=== PATIENT | female | born 1985 | race Caucasian/White ===

== ENCOUNTER 2017-04-21 22:24 | Outpatient (CLI) | payer OTHER | END 2017-04-21 22:25 | disposition critical access hospital (66) | LOC: EMS 22:24 | PROVIDERS: ATTEND Surgery | DX: O34.219 Maternal care for unspecified type scar from previous cesarean delivery (principal); Z37.0 Single live birth | CPT/HCPCS: A0425; A0429 ==

== ENCOUNTER 2017-04-21 22:38 | Inpatient (IN) | payer OTHER ==
[2017-04-21] MEDS ORDERED: OXYTOCIN 10 UNIT/ML VIAL IM ONE (23:00)
[2017-04-21] MEDS: LACTATED RINGERS 1,000 ML IV SCH (23:20)
[2017-04-21] MEDS ORDERED: LIDOCAINE-MPF 1% 30 ML VIAL TOP ONE (23:20)
[2017-04-21] MEDS ORDERED: ONDANSETRON 4 MG/2 ML VIAL IVP PRN (23:39)
[2017-04-21] MEDS ORDERED: WITCH HAZEL/GLYCERIN 1 EACH MED..PAD TOP PRN (23:39)
[2017-04-21] MEDS ORDERED: HYDROCORTISONE 1% CREAM 28 GM TUBE PR PRN (23:39)
[2017-04-21] MEDS ORDERED: diphenhydrAMINE 25 MG CAPSULE PO PRN (23:39)
[2017-04-21] MEDS ORDERED: OXYTOCIN/SODIUM CHLORIDE 250 ML IV ONE (23:39)
[2017-04-21] MEDS ORDERED: OMEPRAZOLE PO PRN (23:43)
[2017-04-21 23:54] LABS: BASOPHILS # (AUTO) 0.1 10^3/uL (0.0-0.1); BASOPHILS % (AUTO) 0.4 %; HCT - HEMATOCRIT 32.2 % (37.0-47.0); HGB - HEMOGLOBIN 10.4 g/dL (12.0-16.0); LYMPHOCYTES # (AUTO) 1.3 10^3/uL (1.5-3.5); LYMPHOCYTES % (AUTO) 6.9 %; MEAN CORPUSCULAR HGB CONC 32.4 g/dL (32.0-36.0); MEAN CORPUSCULAR VOLUME 83.3 fL (81.0-99.0); MEAN PLATELET VOLUME 11.1 fL (7.9-10.8); MONOCYTES # (AUTO) 0.5 10^3/uL (0.0-1.0); MONOCYTES % (AUTO) 2.8 %; NEUTROPHILS # (AUTO) 16.4 10^3/uL (1.5-6.6); NEUTROPHILS % (AUTO) 89.9 %; RED BLOOD COUNT 3.87 10^6/uL (4.20-5.40); RED CELL DISTRIBUTION WIDTH 13.6 % (12.0-15.0); UNCORRECTED WHITE BLOOD COUNT 18.3 x10^3/uL; WHITE BLOOD COUNT 18.3 x10^3/uL (4.8-10.8)
--- NOTE | 2017-04-21 23:57 | DELIVERY NOTE ---
Delivery Note - Labor Labor: positive: Spontaneous - Delivery Method Delivery Method: positive: Spontaneous vaginal delivery, Vaginal after - Anesthetic Anesthetic: positive: Lidocaine - 1% plain Volume: positive: Other (20) - Episiotomy Type Episiotomy Type: positive: None - Laceration Laceration: positive: Labial - Suture Suture Type: positive: Vicryl Suture Size: positive: 4-0 - Delivery Outcome Delivery Outcome: positive: Livebirth - [place] sex: positive: Male - Cord Cord: positive: 3 vessels - Placenta Placenta: positive: Intact, Spontaneous - Estimated Blood Loss Estimated Blood Loss (in cc): 300 - Post Delivery Events Post Delivery Events: positive: No post delivery events - Delivery Comments (Free Text/Narrative) Delivery Comments (Free Text/Narrative): 31 yo S/p and in the ambulance en route to [facility], the closest medical facility Patient of [facility] Will obtain records from [facility] Routine care Pre-eclampsia labs ordered Rh work up; per patient report she is Rh negative. H&P Dictation [id number]
[2017-04-22 00:03] LABS: CREATININE 0.7 mg/dL (0.4-1.0); URIC ACID 5.9 mg/dL (2.6-7.2)
[2017-04-22] MEDS: HYDROcod/ACETAM 5/325 MG TABLET PO SCH ×5 (00:20→22:41)
[2017-04-22] MEDS ORDERED: SODIUM CHLORIDE FLUSH 0.9% 10 ML SYRINGE IVP ONE (05:23)
[2017-04-22] MEDS: SIMETHICONE CHEW 80 MG TABLET PO SCH ×3 (05:59→21:41)
--- NOTE | 2017-04-22 06:24 | PROVIDER PROGRESS NOTE ---
Subjective - Prog Note Date Prog Note Date: 04/22/17 Prog Note Time: 06:23 Objective - Vital Signs/Intake & Output Reviewed Vital Signs: Yes Vital Signs: Vital Signs x48h Temp Pulse Resp BP Pulse Ox 04/22/17 04:45 98.6 F 98 18 122/80 99 04/22/17 03:05 98.6 F 94 16 122/83 H 100 04/22/17 02:15 99.5 F 97 20 123/84 H 100 04/22/17 01:00 95 20 131/88 H 04/22/17 00:45 91 20 137/88 H 04/22/17 00:40 92 20 136/93 H 04/22/17 00:25 97.2 F L 92 20 136/93 H 04/22/17 00:15 87 22 136/90 H 04/22/17 00:00 87 20 144/100 H 04/21/17 23:45 89 20 139/80 H 100 04/21/17 23:30 90 22 143/95 H 04/21/17 23:15 92 24 136/90 H 100 04/21/17 23:00 96 24 139/104 H 100 Intake & Output: Intake & Output 04/19/17 04/20/17 04/21/17 04/22/17 23:59 23:59 23:59 23:59 Output Total 600 Balance -600 - Lab Results Fish Bones: 04/21/17 23:18 04/21/17 23:18 Other Labs: Lab Results x24hrs 04/21/17 04/21/17 04/21/17 Range/Units 23:18 23:18 23:18 WBC (4.8-10.8) x10^3/uL RBC (4.20-5.40) 10^6/uL Hgb (12.0-16.0) g/dL Hct (37.0-47.0) % MCV (81.0-99.0) fL MCH (27.0-31.0) pg MCHC (32.0-36.0) g/dL RDW (12.0-15.0) % Plt Count (130-450) 10^3/uL MPV (7.9-10.8) fL Neut # (1.5-6.6) 10^3/uL Lymph # (1.5-3.5) 10^3/uL [place] # (0.0-1.0) 10^3/uL Eos # (0.0-0.7) 10^3/uL Baso # (0.0-0.1) 10^3/uL Absolute Nucleated RBC x10^3/uL Nucleated RBC % /100WBC Creatinine 0.7 (0.4-1.0) mg/dL Estimated GFR (MDRD) 99 (>89) Uric Acid 5.9 (2.6-7.2) mg/dL AST 28 (10-42) IU/L Lactate Dehydrogenase 141 (91-225) IU/L Blood Type A NEGATIVE Antibody Screen NEGATIVE 04/21/17 Range/Units 23:18 WBC 18.3 H (4.8-10.8) x10^3/uL RBC 3.87 L (4.20-5.40) 10^6/uL Hgb 10.4 L (12.0-16.0) g/dL Hct 32.2 L (37.0-47.0) % MCV 83.3 (81.0-99.0) fL MCH 27.0 (27.0-31.0) pg MCHC 32.4 (32.0-36.0) g/dL RDW 13.6 (12.0-15.0) % Plt Count 220 (130-450) 10^3/uL MPV 11.1 H (7.9-10.8) fL Neut # 16.4 H (1.5-6.6) 10^3/uL Lymph # 1.3 L (1.5-3.5) 10^3/uL [place] # 0.5 (0.0-1.0) 10^3/uL Eos # 0.0 (0.0-0.7) 10^3/uL Baso # 0.1 (0.0-0.1) 10^3/uL Absolute Nucleated RBC 0.00 x10^3/uL Nucleated RBC % 0.0 /100WBC Creatinine (0.4-1.0) mg/dL Estimated GFR (MDRD) (>89) Uric Acid (2.6-7.2) mg/dL AST (10-42) IU/L Lactate Dehydrogenase (91-225) IU/L Blood Type Antibody Screen Assessment/Plan - Problem List (1) Vaginal after delivery Impression: 31 yo S/p , in the field Normal recovery Labs WNL
--- NOTE | 2017-04-22 08:00 | HISTORY & PHYSICAL EXAMINATION ---
IDENTIFICATION: A 31-year-old, G3, P2-1-0-2 status post spontaneous vaginal delivery of a vaginal after delivery on 04/21/2017. HISTORY OF PRESENT ILLNESS: The patient is a patient of [facility], who started having contractions and ruptured membranes at her house. Apparently , this happened on her front door steps. She was transported to the nearest hospital, which happens to be [facility]. By report, the was delivered in the ambulance. The baby gave a lusty cry at delivery. It is my understanding that the patient is a , and was anticipated to deliver at [facility]. We currently do not have any of [facility]'s records. The patient arrived here with the umbilical cord still attached to the fetus. The RNs doubly clamped the cord and cut it. By the time I had seen the patient, she still had not had an IV in. The patient was then given 20 units of Pitocin IM. The placenta was then delivered and found to be intact with a 3-vessel cord. Given we have no history of the patient, the placenta will be sent off, particularly because she is a . Upon inspection of the vagina and vulva, there was a significant laceration on her right labia majora. There was a hole tore that was torn through the medial and superior aspect of the labia majora. This was repaired with single interrupted stitches of 4-0 Vicryl. The patient was given a local anesthetization of 1% lidocaine. Approximately 20 mL was used. Estimated blood loss was 300 mL. Fundus was firm. The patient was accompanied today with the father of her baby, Bunny. This is a male with an anticipated name of Bunny Izaguirre. Apgars were not calculated at the time of delivery, but the baby currently is doing well. Weight was 8 pounds 14.9 ounces. The patient and Reuben stated that the patient has not had any significant events during this . She denies being rubella nonimmune, as well as being GBS negative. The patient reports that she is Rh negative. She also denies having any issues with this , including diabetes, high blood pressure, or any bleeding issues. This is Bunny's first child. The patient has a 4-year-old son who is currently staying with his father. PAST MEDICAL HISTORY: Chronic pain of her upper thorax and neck. She denies any diabetes, hypertension or thyroid dysfunction. PAST SURGICAL HISTORY 1. delivery x1. 2. Tonsillectomy. ALLERGIES: SULFA. MEDICATIONS: Flexeril for her chronic pain. SOCIAL HISTORY: She lives in [place] and was intended to deliver at [facility]. Father of baby is Bunny and this is a male with the name of Bunny Izaguirre. PAST OBSTETRICAL HISTORY 1. One delivery at 20 weeks. Baby . 2. Term delivery. 3. 04/21/2017 vaginal after delivery via a spontaneous vaginal delivery. PAST GYNECOLOGICAL HISTORY: She denies any sexually transmitted diseases. FAMILY HISTORY: Not pertinent at this point in time. REVIEW OF SYSTEMS: Negative unless otherwise stated. OBJECTIVE VITAL SIGNS: Stable. GENERAL: The patient is a well-developed, well-nourished, female, in some distress understandably from the pain of having a delivery. ABDOMEN: Nontender with a firm fundus. Perineum: Significant complete tears through the right labia majora at the base. This was repaired with 4-0 Vicryl and currently is hemostatically stable. ASSESSMENT 1. A 31-year-old, G3, P2-1-0-2 status post a spontaneous vaginal delivery and vaginal after . 2. The patient reportedly is Rh negative. PLAN 1. We will obtain a CBC and preeclampsia labs, as the patient was noted to have an elevated blood pressure. 2. Rh workup. 3. Routine care. 4. We will obtain records from [facility], specifically for the patient's OB records. TD: 04/22/2017 03:42 MARION
--- NOTE | 2017-04-22 08:00 | HISTORY & PHYSICAL EXAMINATION ---
[address] [address] History and Physical Patient: BRAULIO LOMBARDI Admit Date: 04/21/2017 Discharge Date: DOS: 04/21/2017 Physician: Yamilet Woo DO IDENTIFICATION: A 31-year-old, G3, P2-1-0-2 status post spontaneous vaginal delivery of a vaginal after delivery on 04/21/2017. HISTORY OF PRESENT ILLNESS: The patient is a patient of , who started having contractions and ruptured membranes at her house. Apparently, this happened on her front door steps. She was transported to the nearest hospital, which happens to be [facility]. By report, the infant was delivered in the ambulance. The baby gave a lusty cry at delivery. It is my understanding that the patient is a , and was anticipated to deliver at [facility]. We currently do not have any of [facility]'s records. The patient arrived here with the umbilical cord still attached to the fetus. The RNs doubly clamped the cord and cut it. By the time I had seen the patient, she still had not had an IV in. The patient was then given 20 units of Pitocin IM. The placenta was then delivered and found to be intact with a 3-vessel cord. Given we have no history of the patient, the placenta will be sent off, particularly because she is a . Upon inspection of the vagina and vulva, there was a significant laceration on her right labia majora. There was a hole tore that was torn through the medial and superior aspect of the labia majora. This was repaired with single interrupted stitches of 4-0 Vicryl. The patient was given a local anesthetization of 1% lidocaine. Approximately 20 mL was used. Estimated blood loss was 300 mL. Fundus was firm. The patient was accompanied today with the father of her baby, Bunny. This is a male infant with an anticipated name of Bunny Izaguirre. Apgars were not calculated at the time of delivery, but the baby currently is doing well. Weight was 8 pounds 14.9 ounces. The patient and Reuben stated that the patient has not had any significant events during this . She denies being rubella nonimmune, as well as being GBS negative. The patient reports that she is Rh negative. She also denies having any issues with this , including diabetes, high blood pressure, or any bleeding issues. This is Bunny's first child. The patient has a 4-year-old son who is currently staying with his father. PAST MEDICAL HISTORY: Chronic pain of her upper thorax and neck. She denies any diabetes, hypertension or thyroid dysfunction. PAST SURGICAL HISTORY 1. delivery x1. 2. Tonsillectomy. ALLERGIES: SULFA. MEDICATIONS: Flexeril for her chronic pain. SOCIAL HISTORY: She lives in [place] and was intended to deliver at . Father of baby is Bunny and this is a male infant with the name of Bunny Izaguirre. PAST OBSTETRICAL HISTORY 1. One delivery at 20 weeks. 2. Term delivery. 3. 04/21/2017 vaginal after delivery via a vaginal delivery. PAST GYNECOLOGICAL HISTORY: She denies any sexually transmitted diseases. FAMILY HISTORY: Not pertinent at this point in time. REVIEW OF SYSTEMS: Negative unless otherwise stated. OBJECTIVE VITAL SIGNS: Stable. She is GENERAL: The patient is a well-developed, well-nourished, female, in some distress understandably from the pain of having a delivery. ABDOMEN: Nontender with a firm fundus. Perineum: Significant complete tears through the right labia majora at the base. This was repaired with 4-0 Vicryl and currently is hemostatically stable. ASSESSMENT 1. A 31-year-old, G3, P2-1-0-2 status post a spontaneous vaginal delivery and vaginal after . 2. The patient reportedly is Rh negative. PLAN 1. We will obtain a CBC and preeclampsia labs, as the patient was noted to have an elevated blood pressure. 2. Rh workup. 3. Routine care. 4. We will obtain records from , specifically for the patient's OB records. Yamilet Woo DO MSC TD: 04/22/2017 03:42
[2017-04-22] MEDS: PANTOPRAZOLE 40 MG TABLET PO SCH (08:16)
[2017-04-22] MEDS: CYCLOBENZAPRINE 10 MG TABLET PO PRN ×3 (08:16→21:39)
[2017-04-22] MEDS: ACETAMINOPHEN 325 MG TABLET PO PRN (08:17)
[2017-04-22] MEDS ORDERED: CELECOXIB 100 MG CAPSULE PO SCH (09:00)
[2017-04-22] MEDS: IBUPROFEN 800 MG TABLET PO SCH ×3 (09:15→21:40)
[2017-04-22] MEDS: LACTATED RINGERS 1,000 ML IV SCH (09:51)
[2017-04-22] MEDS: DOCUSATE SODIUM 100 MG CAPSULE PO SCH ×2 (14:54→20:58)
[2017-04-22] MEDS ORDERED: RHO(D) IMMUNE GLOBULIN 300 MCG SYRINGE IM ONE (18:50)
--- NOTE | 2017-04-22 19:20 | PROVIDER PROGRESS NOTE ---
Subjective - Prog Note Date Prog Note Date: 04/22/17 Prog Note Time: 19:16 - Subjective Pt reports feeling: Improved Subjective: Patient sitting in bed with baby Bunny Braga. Four year old son Cristi visiting. KILLIAN Hollis at bedside. Pain better controlled but still having painful cramping. Ambulating and tolerating a regular diet. No nausea or vomiting. Urinating without difficulty. Uses [facility] in [place]. patient. Objective - Vital Signs/Intake & Output Vital Signs: Vital Signs x48h Temp Pulse Resp BP Pulse Ox 04/22/17 15:27 98.8 F 98 16 121/82 H 99 Intake & Output: Intake & Output 04/19/17 04/20/17 04/21/17 04/22/17 23:59 23:59 23:59 23:59 Intake Total 1000 Output Total 1000 Balance 0 - Lab Results Fish Bones: 04/21/17 23:18 04/21/17 23:18 Other Labs: Lab Results x24hrs 04/21/17 04/21/17 04/21/17 Range/Units 23:18 23:18 23:18 WBC (4.8-10.8) x10^3/uL RBC (4.20-5.40) 10^6/uL Hgb (12.0-16.0) g/dL Hct (37.0-47.0) % MCV (81.0-99.0) fL MCH (27.0-31.0) pg MCHC (32.0-36.0) g/dL RDW (12.0-15.0) % Plt Count (130-450) 10^3/uL MPV (7.9-10.8) fL Neut # (1.5-6.6) 10^3/uL Lymph # (1.5-3.5) 10^3/uL [place] # (0.0-1.0) 10^3/uL Eos # (0.0-0.7) 10^3/uL Baso # (0.0-0.1) 10^3/uL Absolute Nucleated RBC x10^3/uL Nucleated RBC % /100WBC Creatinine 0.7 (0.4-1.0) mg/dL Estimated GFR (MDRD) 99 (>89) Uric Acid 5.9 (2.6-7.2) mg/dL AST 28 (10-42) IU/L Lactate Dehydrogenase 141 (91-225) IU/L Blood Type A NEGATIVE Antibody Screen NEGATIVE 04/21/17 Range/Units 23:18 WBC 18.3 H (4.8-10.8) x10^3/uL RBC 3.87 L (4.20-5.40) 10^6/uL Hgb 10.4 L (12.0-16.0) g/dL Hct 32.2 L (37.0-47.0) % MCV 83.3 (81.0-99.0) fL MCH 27.0 (27.0-31.0) pg MCHC 32.4 (32.0-36.0) g/dL RDW 13.6 (12.0-15.0) % Plt Count 220 (130-450) 10^3/uL MPV 11.1 H (7.9-10.8) fL Neut # 16.4 H (1.5-6.6) 10^3/uL Lymph # 1.3 L (1.5-3.5) 10^3/uL [place] # 0.5 (0.0-1.0) 10^3/uL Eos # 0.0 (0.0-0.7) 10^3/uL Baso # 0.1 (0.0-0.1) 10^3/uL Absolute Nucleated RBC 0.00 x10^3/uL Nucleated RBC % 0.0 /100WBC Creatinine (0.4-1.0) mg/dL Estimated GFR (MDRD) (>89) Uric Acid (2.6-7.2) mg/dL AST (10-42) IU/L Lactate Dehydrogenase (91-225) IU/L Blood Type Antibody Screen Assessment/Plan - Problem List (1) Vaginal after delivery Impression: 31 yo S/p 04/21/2017 of Stable condition Normal recovery Routine care Anticipate discharge to home tomorrow Rx called into [facility] in [place] for acetaminophen, ibuprofen and colace Handwritten Rx for vicodin available Discharge summary dictated: [id number]
[2017-04-23] MEDS: IBUPROFEN 800 MG TABLET PO SCH ×4 (03:35→19:57)
[2017-04-23] MEDS: LACTATED RINGERS 1,000 ML IV SCH ×2 (03:36→20:22)
[2017-04-23] MEDS: HYDROcod/ACETAM 5/325 MG TABLET PO SCH ×3 (04:34→18:30)
[2017-04-23] MEDS ORDERED: oxyCODONE 5 MG TABLET PO PRN (08:44)
--- NOTE | 2017-04-23 08:47 | PROVIDER PROGRESS NOTE ---
Subjective - Prog Note Date Prog Note Date: 04/23/17 Prog Note Time: 08:50 - Subjective Pt reports feeling: Improved Subjective: Patient in bed. and baby at bedside. Still significant cramping pain although frequency decreasing. Desires to go home. Ambulating and tolerating regular diet. Urinating without difficulty. Desires to go home. Objective - Vital Signs/Intake & Output Reviewed Vital Signs: Yes Vital Signs: Vital Signs x48h Temp Pulse Resp BP Pulse Ox 04/23/17 08:14 98.1 F 101 H 16 118/83 H 97 Intake & Output: Intake & Output 04/20/17 04/21/17 04/22/17 04/23/17 23:59 23:59 23:59 23:59 Intake Total 1000 Output Total 1000 Balance 0 - Objective General Appearance: positive: No acute distress Rectal: positive: Non-tender - Lab Results Fish Bones: 04/21/17 23:18 04/21/17 23:18 Other Labs: Lab Results x24hrs 04/22/17 Range/Units 19:15 Blood Type A NEGATIVE Weak D (Du) WEAK-D NEGATIVE Maternal Bleed NEGATIVE (NEGATIVE) Assessment/Plan - Problem List (1) Vaginal after delivery Impression: 31 yo S/p and Normal recovery Discharge to home Trial of oxycodone vs vicodin Discharge to home today Follow up for routine 6 week exam [facility], tylenol or colace. Rx for oxycodone vs vicodin Call for worsening fevers, chills, abdominal pain or vaginal bleeding. Discharge Plan Disposition: 01 Home, Self Care Condition: Good Diet: Regular Activity Restrictions: Activity as Tolerated Shower Restrictions: No Driving Restrictions: Yes (No driving after taking narcotics) Weight Bearing: Full Weight No Smoking: If you smoke, Please STOP! Call for help.
[2017-04-23] MEDS: PANTOPRAZOLE 40 MG TABLET PO SCH (08:49)
[2017-04-23] MEDS: CYCLOBENZAPRINE 10 MG TABLET PO PRN ×2 (08:49→19:57)
[2017-04-23] MEDS: DOCUSATE SODIUM 100 MG CAPSULE PO SCH ×2 (08:51→19:57)
[2017-04-23] MEDS: SIMETHICONE CHEW 80 MG TABLET PO SCH ×3 (09:00→20:23)
[2017-04-23] MEDS: oxyCODONE 5 MG TABLET PO PRN ×3 (09:19→20:49)
--- NOTE | 2017-04-23 10:41 | DISCHARGE SUMMARY ---
[address] [address] DATE OF SERVICE: 04/23/2017 Physician: Yamilet Woo DO DIAGNOSES ON ADMISSION 1. A 31-year-old, G4, P2-1-1-2, status post spontaneous vaginal delivery of a vaginal after delivery on 04/21/2017. 2. Normal recovery. DISCHARGE DIAGNOSES 1. A 31-year-old, G4, P2-1-1-2, status post spontaneous vaginal delivery of a vaginal after delivery on 04/21/2017. 2. Normal recovery. HISTORY OF PRESENT ILLNESS: The patient is a patient at [facility] who went into labor and called EMS. The patient spontaneously delivered a male infant, named Bunny, weighing 8 pounds 14.6 ounces in the rig. The patient was planned a trial of labor after at [facility]. In any event, the patient came here to [facility], since it was the closest medical facility to her place of residence. The patient's placenta was delivered and a vulvar laceration was repaired with 4-0 Vicryl. There was a hole through her right superior labia majora. EBL was 300 mL There were no complications. The patient's course has been unremarkable. She is ambulating and, tolerating a regular diet. She was urinating without difficulty. Her pain was controlled with oral ibuprofen, Tylenol and Vicodin. I anticipate the patient to be discharged to home on 04/23/2017. Prescriptions for Tylenol, acetaminophen, and Colace have just been called over to [facility] in [place]. A handwritten prescription for Vicodin vs oxycodone available for the patient, should she desire this. The patient to see either myself at [facility] in 6 weeks or her regular OB provider at [facility]. She is to call if she has any worsening fevers, chills , abdominal pain or vaginal bleeding. Dictating Provider: Yamilet Woo DO MSC/ TD: 04/23/2017 04:46 [facility]
--- NOTE | 2017-04-23 10:42 | DISCHARGE SUMMARY ---
DATE OF ADMISSION: 04/21/2017 DATE OF DISCHARGE: 04/23/2017 DIAGNOSES ON ADMISSION 1. A 31-year-old, G4, P2-1-1-2, status post spontaneous vaginal delivery of a vaginal after delivery on 04/21/2017. 2. Normal recovery. DISCHARGE DIAGNOSES 1. A 31-year-old, G4, P2-1-1-2, status post spontaneous vaginal delivery of a vaginal after delivery on 04/21/2017. 2. Normal recovery. HISTORY OF PRESENT ILLNESS: The patient is a patient at [facility] who went into labor and called EMS. The patient spontaneously delivered a male , named Bunny, weighing 8 pounds 14.6 ounces. The patient was planned a trial of labor after at [facility]. In any event, the patient came here to [facility], since it was the closest medical facility to her place of residence. The patient's placenta was delivered and a vulvar laceration was repaired with 4-0 Vicryl. There was a hole through her right superior labia majora. EBL was 300 mL There were no complications. The patient's course has been unremarkable. She is ambulating and, tolerating a regular diet. She was urinating without difficulty. Her pain was controlled with oral ibuprofen, Tylenol and Vicodin. I anticipate the patient to be discharged to home on 04/23/2017. Prescriptions for Tylenol, acetaminophen, and Colace have just been called over to [facility] in [place]. A handwritten prescription for Vicodin is available for the patient, should she desire this. The patient to see either myself at [facility] in 6 weeks or her regular OB provider at [facility]. She is to call if she has any worsening fevers, chills, abdominal pain or vaginal bleeding. TD: 04/23/2017 03:46 MARION
[2017-04-23] MEDS ORDERED: RHO(D) IMMUNE GLOBULIN 300 MCG SYRINGE IM ONE (13:00)
[2017-04-23] MEDS: MAGNESIUM HYDROXIDE 2,400 MG/30 ML UDC PO PRN (15:37)
--- NOTE | 2017-04-23 16:22 | PROVIDER PROGRESS NOTE ---
Subjective - Prog Note Date Prog Note Date: 04/23/17 Prog Note Time: 16:17 - Subjective Pt reports feeling: No change Subjective: Patient given milk of magnesia, oil retension enema. Still has not passed stool. When patient on the toilet, OB RN noted a golf ball sized mass from the vagina. Patient denies ever having this before. Denies loren bleeding, pain. Objective - Vital Signs/Intake & Output Intake & Output: Intake & Output 04/20/17 04/21/17 04/22/17 04/23/17 23:59 23:59 23:59 23:59 Intake Total 1000 Output Total 1000 Balance 0 - Objective General Appearance: positive: No acute distress Eyes Bilateral: positive: Normal inspection Comments/Other: EGBUS: 4-[address] Healing nicely. Vulva multiparous with redundant tissue. Vagina: Intact, no bleeding. No masses. No erythema nor edema Cervix: Multiparous and low. Intact, no bleeding. No ecchymosis - Lab Results Fish Bones: 04/21/17 23:18 04/21/17 23:18 Other Labs: Lab Results x24hrs 04/22/17 Range/Units 19:15 Blood Type A NEGATIVE Weak D (Du) WEAK-D NEGATIVE Maternal Bleed NEGATIVE (NEGATIVE) Assessment/Plan - Problem List (1) Vaginal after delivery Impression: 31 yo S/p and 04/22/2017 Most likely prolapsed cervix seen Constipation > 1 week Will try magnesium citrate Discharge to home.
[2017-04-23] MEDS ORDERED: MAGNESIUM CITRATE 296 ML BOTTLE PO PRN (16:26)
[2017-04-23] MEDS: ACETAMINOPHEN 325 MG TABLET PO PRN (19:57)
[2017-04-23] MEDS ORDERED: GLYCERIN ADULT SUPP PR STA (21:07)
[2017-04-24] MEDS: LACTATED RINGERS 1,000 ML IV SCH (00:11)
[2017-04-24] MEDS: HYDROcod/ACETAM 5/325 MG TABLET PO SCH ×3 (00:11→15:36)
[2017-04-24] MEDS: ACETAMINOPHEN 325 MG TABLET PO PRN ×3 (00:15→14:37)
[2017-04-24] MEDS ORDERED: SODIUM CHLORIDE FLUSH 0.9% 10 ML SYRINGE IVP ONE (00:40)
[2017-04-24] MEDS: CYCLOBENZAPRINE 10 MG TABLET PO PRN ×2 (02:58→14:37)
[2017-04-24] MEDS: IBUPROFEN 800 MG TABLET PO SCH ×3 (02:58→14:37)
[2017-04-24] MEDS: oxyCODONE 5 MG TABLET PO PRN ×3 (03:59→14:38)
[2017-04-24] MEDS: SIMETHICONE CHEW 80 MG TABLET PO SCH ×2 (07:45→15:37)
--- NOTE | 2017-04-24 08:38 | PROVIDER PROGRESS NOTE ---
Subjective - Prog Note Date Prog Note Date: 04/24/17 Prog Note Time: 08:35 - Subjective Pt reports feeling: No change Subjective: Patient sitting in bed with the baby. Stayed overnight in order to empty stool. Patient has not had BM >1 week. Despite stool softeners, enema, glycerin suppository, magnesium citrate, no significant BM. Objective - Vital Signs/Intake & Output Vital Signs: Vital Signs x48h Temp Pulse Resp BP Pulse Ox 04/24/17 03:58 98.8 F 88 18 117/80 100 Intake & Output: Intake & Output 04/21/17 04/22/17 04/23/17 04/24/17 23:59 23:59 23:59 23:59 Intake Total 1000 Output Total 1000 Balance 0 - Objective General Appearance: positive: No acute distress Abdomen: positive: Non-tender Neurologic/Psychiatric: positive: Oriented x3 - Lab Results Fish Bones: 04/21/17 23:18 04/21/17 23:18 Assessment/Plan - Problem List (1) Vaginal after delivery Impression: 31 yo S/p and Normal recovery Routine care Constipation Senna, continue Mag citrate Discharge to home today after BM
[2017-04-24] MEDS ORDERED: LACTULOSE 10 GM /15 ML UDC PO PRN (08:43)
[2017-04-24] MEDS ORDERED: PEG 3350/NA SULF,BICARB,CL/KCL 4,000 ML BOTTLE PO ONE (08:44)
[2017-04-24] MEDS ORDERED: SENNA 8.6 MG TABLET PO SCH (09:00)
[2017-04-24 09:02] VITALS: BP 136/83
[2017-04-24] MEDS: DOCUSATE SODIUM 100 MG CAPSULE PO SCH (09:04)
[2017-04-24] MEDS: PANTOPRAZOLE 40 MG TABLET PO SCH (09:04)
[2017-04-24] MEDS: MAGNESIUM HYDROXIDE 2,400 MG/30 ML UDC PO PRN (09:04)
--- NOTE | 2017-04-24 12:18 | DISCHARGE SUMMARY ---
DATE OF SERVICE: Physician: Yamilet Woo, DO ADDENDUM The patient was kept for 1 more day secondary to difficulty passing stool. Pooja has not had a mayuri wel movement for over a week. We will work on her having a bowel movement and discharge her to home after that eason s occurred. TD: 04/24/2017 09:57
[2017-04-24] MEDS ORDERED: ZINC OXIDE TOP SCH (14:00)
[2017-04-24] MEDS ORDERED: PETROLATUM TOP SCH (14:00)
[2017-04-24] MEDS ORDERED: COD LIVER OIL/ZINC OXIDE 113 GM TUBE TOP SCH (14:21)
== END 2017-04-24 16:50 | disposition home or self-care (01) | DRG 775 ==
LOC: WFO 22:38 → FBP 22:40 → WFO 22:41 → FBP 22:41
PROVIDERS: ADMIT Obstetrics & Gynecology; ATTEND Obstetrics & Gynecology
PROC: 10E0XZZ Delivery of Products of Conception, External Approach (ICD-10-PCS; principal; 2017-04-21)
PROC: 0HQ9XZZ Repair Perineum Skin, External Approach (ICD-10-PCS; 2017-04-21)
DX: O70.0 First degree perineal laceration during delivery (principal); O34.219 Maternal care for unspecified type scar from previous cesarean delivery; O99.63 Diseases of the digestive system complicating the puerperium; K59.00 Constipation, unspecified; Z67.91 Unspecified blood type, Rh negative; M54.2 Cervicalgia; M54.6 Pain in thoracic spine; G89.29 Other chronic pain
CPT/HCPCS: 82565; 83033; 83615; 84450; 84550; 85025; 86850; 86900; 86901